=== PATIENT | female | born 1990 | race Caucasian/White ===

== ENCOUNTER 2019-11-09 12:42 | Emergency (ER) | payer SELFPAY ==
[~2019-11-09] VITALS: Ht 157.5 cm; Wt 72.7 kg
[2019-11-09 12:49] VITALS: Ht 157.5 cm; Wt 72.7 kg
[2019-11-09] MEDS ORDERED: VYVANSE50 MG PO (12:51)
[2019-11-09] MEDS ORDERED: PROTONIX40 MG PO (15:36)
[2019-11-09] MEDS ORDERED: SKELAXIN800 MG PO (15:36)
[2019-11-09] MEDS ORDERED: VOLTAREN75 MG PO (15:36)
[2019-11-09 16:07] VITALS: BP 137/91
== END 2019-11-09 16:08 | disposition home or self-care (01) ==
LOC: D.ER 12:42
DX: M62.838 Other muscle spasm (principal); V89.2XXA Person injured in unspecified motor-vehicle accident, traffic, initial encounter; Y93.9 Activity, unspecified; Y92.9 Unspecified place or not applicable; R51 Headache